=== PATIENT | female | born 1985 | race Caucasian/White ===

== ENCOUNTER 2017-08-25 18:58 | Inpatient (IN) | payer MEDICAID ==
[~2017-08-25] VITALS: Ht 160 cm; Wt 47.6 kg
--- NOTE | 2017-08-25 20:05 | NUR ---
Dr. Rueda at bedside for MSE.
[2017-08-25] MEDS ORDERED: IV NORMAL SALINE 1000 ML BAG IV ONE ×2 (20:15→22:30)
--- NOTE | 2017-08-25 20:30 | NUR ---
Pt came in, ambulated to ER, c/o headache, reports migraines over 4 days, and lost consciousness yesterday. Pt reports she doesn't eat very much. Stroke assessment performed on patient, no deficits.
[2017-08-25 20:43] LABS: BASOPHILS # (AUTO) 0.1 K/uL (0.0-8.0); BASOPHILS % (AUTO) 0.6 % (0.0-2.0); EOSINOPHILS # (AUTO) 0.1 K/uL (0.0-0.7); EOSINOPHILS % (AUTO) 0.8 % (0.0-7.0); HEMATOCRIT 35.9 % (31.2-41.9); HEMOGLOBIN 11.2 g/dL (10.9-14.3); LYMPHOCYTES # (AUTO) 1.2 K/uL (20.0-40.0); LYMPHOCYTES % (AUTO) 12.6 % (20.5-51.5); MEAN CORPUSCULAR HEMOGLOBIN 21.9 uug (24.7-32.8); MEAN CORPUSCULAR HGB CONC 31 g/dL (32.3-35.6); MEAN CORPUSCULAR VOLUME 70.1 fL (75.5-95.3); MONOCYTES # (AUTO) 0.6 K/uL (2.0-10.0); MONOCYTES % (AUTO) 6.3 % (0.0-11.0); NEUTROPHILS # (AUTO) 7.7 K/uL (1.8-8.9); NEUTROPHILS % (AUTO) 79.7 % (38.5-71.5); PLATELET COUNT (AUTO) 74 K/uL (179-408); RED BLOOD CELL COUNT(AUTO) 5.13 MIL/uL (3.63-4.92); WHITE BLOOD COUNT (AUTO) 9.7 K/uL (3.8-11.8)
[2017-08-25 20:58] LABS: BILIRUBIN,DIRECT 0.1 mg/dL (0.0-0.2); BILIRUBIN,TOTAL 0.5 mg/dL (0.2-1.0); CREATININE 0.9 mg/dL (0.6-1.3); TOTAL PROTEIN, SERUM 8.1 g/dL (6.4-8.2)
--- NOTE | 2017-08-25 21:00 | NUR ---
Pt in bed no acute signs of distress. Talking on cellphone.
--- NOTE | 2017-08-25 22:00 | NUR ---
Pt in bed, no acute signs of distress. IV infusing.
[2017-08-25 22:15] LABS: BAND % (MANUAL) 3 % (0-10); LYMPHOCYTES % (MANUAL) 10 % (20-40); MONOCYTES % (MANUAL) 5 % (2-10); NEUTROPHILS % (MANUAL) 82 % (42-75)
--- NOTE | 2017-08-25 23:38 | NUR ---
Pt in bed, reports still has headache about 6/10. No acute signs of distress.
--- NOTE | 2017-08-26 00:05 | NUR ---
1159 Patient lying BP 110/71, HR 94, O2 Sat 98%. 1201 Patient standing BP 94/52, HR 109, O2 Sat 99%. 1203 Patient standing BP 105/68, HR 110, O2 Sat 98%
--- NOTE | 2017-08-26 00:05 | NUR ---
Check patient for orthostatic hypotension. MD notified.
[2017-08-26] MEDS ORDERED: IV NORMAL SALINE 1000 ML BAG IV ONE (00:15)
[2017-08-26 00:35] LABS: *BILIRUBIN,URIN NEGATIVE (NEGATIVE); *BLOOD, URINE Trace-intact (NEGATIVE); *CLARITY,URINE CLEAR (CLEAR); *COLOR,URINE YELLOW (YELLOW); *KETONES,URINE NEGATIVE (NEGATIVE); *PROTEIN,URINE NEGATIVE (NEGATIVE); *UROBILINOGEN,URINE 0.2 E.U./dl (NORMAL); LEUKOCYTE ESTERASE ,URINE NEGATIVE (NEGATIVE); NITRITE, URINE NEGATIVE (NEGATIVE); UGLUCOSE NEGATIVE (NEGATIVE)
[2017-08-26 01:03] LABS: BACTERIA,URINE MOD /HPF (NONE SEEN); RBC,URINE 0-3 /HPF (0-3); WBC,URINE 0-3 /HPF (0-3)
[2017-08-26 01:04] LABS: SQUAMOUS EPITHELIAL CELL,UR FEW /HPF (NONE SEEN)
--- NOTE | 2017-08-26 01:25 | NUR ---
Patient immediate standing HR 139, BP 115/70
--- NOTE | 2017-08-26 01:25 | NUR ---
Rechecked patient for orthostatic hypotension.
--- NOTE | 2017-08-26 02:27 | NUR ---
Passed report to Jena RUBIO Tele.
[2017-08-26 02:45] VITALS: BP 98/63
--- NOTE | 2017-08-26 03:00 | NUR ---
RECEIVED PATIENT VIA W/C FROM ER. PATIENT IS A/O X4. C/O MIGRAINE. H/L INTACT AND PATENT NOTED TO RIGHT FA #20 GAUGE. NO RESP. DISTRESS NOTED. VSS. AFEBRILE. ORIENTED PATIENT TO ROOM AND CALL LIGHT. CALL LIGHT IN REACH. ALL NEEDS ATTENDED. WILL CONTINUE TO MONITOR AND ASSESS.
--- NOTE | 2017-08-26 03:10 | NUR ---
CALLED OUT TO BRITTANY CARROLL NP [employer] TRAINER MECHANIC FOR ADMISSION ORDERS. WAITING FOR CALL BACK.
--- NOTE | 2017-08-26 03:45 | NUR ---
PATIENT ASLEEP IN BED. WAITING FOR ADMISSION ORDERS.
[2017-08-26 04:00] VITALS: BP 96/70
--- NOTE | 2017-08-26 06:04 | NUR ---
RECEIVED CALL BACK FROM LOGAN GROVE. SHE WILL INPUT ADMISSION ORDERS.
[2017-08-26] MEDS ORDERED: Z GUARD REMEDY PASTE 57 GM TUBE TOP PRN (06:15)
[2017-08-26] MEDS ORDERED: ZOLPIDEM 5 MG TABLET PO PRN (06:15)
[2017-08-26] MEDS ORDERED: IBUPROFEN 600 MG TABLET PO PRN (06:15)
[2017-08-26] MEDS ORDERED: MAGNESIUM HYDROXIDE 30 ML LIQUID UDC PO PRN (06:15)
[2017-08-26] MEDS ORDERED: ACETAMINOPHEN 325 MG TABLET PO PRN (06:15)
[2017-08-26] MEDS ORDERED: CEPHALEXIN MONOHYDRATE 500 MG CAPSULE PO SCH (06:15)
[2017-08-26] MEDS ORDERED: IBUPROFEN 200 MG TABLET PO PRN (06:15)
[2017-08-26] MEDS ORDERED: ONDANSETRON 4 MG/2 ML VIAL IV PRN (06:15)
[2017-08-26] MEDS: IV NS 1000 ML 1,000 ML IV PRN (06:20)
--- NOTE | 2017-08-26 06:22 | NUR ---
PATIENT GIVEN KEFLEX 500MG PO ORDERED.
[2017-08-26] MEDS ORDERED: CEPHALEXIN MONOHYDRATE 500 MG CAPSULE PO ONE (06:30)
--- NOTE | 2017-08-26 06:44 | NUR ---
ON TELE SR.
[2017-08-26 11:22] VITALS: BP 110/56
[2017-08-26] MEDS: CEPHALEXIN MONOHYDRATE 500 MG CAPSULE PO SCH ×2 (13:29→21:37)
[2017-08-26 13:30] VITALS: BP_SYST 105; BP_SYST 107; BP_SYST 115; BP_DIAS 78; BP_DIAS 79
--- NOTE | 2017-08-26 13:30 | NUR ---
Orthostatic blood pressure done as ordered. Patient is alert, cooperative, in no distress, no c/o of SOB/Chest pain, dizziness. Pt c/o of slight headache. Administered PRN med as ordered.
[2017-08-26 15:40] VITALS: BP 93/68
--- NOTE | 2017-08-26 18:00 | NUR ---
Patient upset, been wantiing to leave the floor to smoke. Patient teaching provided, smoking cessation teaching provided, patient verbalized understanding but refused nicotine patch. Discussed with patient regarding hospital policy, risks/benefits of leaving floor to smoke and smoking. Patient is ambulatory, frequently goes to the bathroom and ask for her to be disconnected to the IV whenever she goes to the bathroom.
--- NOTE | 2017-08-26 18:45 | NUR ---
senior technologist alerted RN regarding patient's heart rate of 120's bpm. Patient's heart rate tends to be over 100 bpm everytime patient goes to the bathroom or stands up. Endorsed to the oncoming shift RN.
--- NOTE | 2017-08-26 20:00 | NUR ---
RECEIVED PATIENT AWAKE IN BED. A/O X4. DENIES PAIN OR DISCOMFORT. NO RESP. DISTRESS NOTED. VS WNL. ON TELE SR. IVF INFUSING WELL TO RIGHT FA #20 GAUGE. CALL LIGHT IN REACH. ALL NEEDS ATTENDED.
[2017-08-26 20:28] VITALS: BP 112/73
[2017-08-27 00:14] VITALS: BP 98/61
[2017-08-27] MEDS: IV NS 1000 ML 1,000 ML IV PRN (02:18)
[2017-08-27 04:17] VITALS: BP 101/55
[2017-08-27] MEDS: CEPHALEXIN MONOHYDRATE 500 MG CAPSULE PO SCH ×2 (05:28→13:33)
[2017-08-27 06:41] LABS: BASOPHILS % (AUTO) 0.6 % (0.0-2.0); EOSINOPHILS # (AUTO) 0.2 K/uL (0.0-0.7); EOSINOPHILS % (AUTO) 3.2 % (0.0-7.0); LYMPHOCYTES # (AUTO) 1.5 K/uL (20.0-40.0); LYMPHOCYTES % (AUTO) 26.9 % (20.5-51.5); MEAN CORPUSCULAR HGB CONC 32 g/dL (32.3-35.6); MONOCYTES # (AUTO) 0.5 K/uL (2.0-10.0); MONOCYTES % (AUTO) 8.6 % (0.0-11.0); NEUTROPHILS # (AUTO) 3.4 K/uL (1.8-8.9); NEUTROPHILS % (AUTO) 60.7 % (38.5-71.5)
--- NOTE | 2017-08-27 06:41 | NUR ---
PATIENT AWAKE IN BED. DENIES PAIN OR DISCOMFORT. NO RESP. DISTRESS NOTED. ON TELE SR. SLEPT WELL THROUGHOUT THE NIGHT. CALL LIGHT IN REACH. ALL NEEDS ATTENDED. WILL CONTINUE TO MONITOR.
[2017-08-27 06:51] LABS: CARBON DIOXIDE 24 mmol/L (21-32); CHLORIDE 107 mmol/L (98-107); CHOLESTEROL 99 mg/dL (<200); CREATININE 0.5 mg/dL (0.6-1.3); GLUCOSE 91 mg/dL (74-106); HDL CHOLESTEROL 44 mg/dL (40-60); MAGNESIUM 1.5 mg/dL (1.8-2.4); PHOSPHOROUS 3.4 mg/dL (2.5-4.9); POTASSIUM 3.6 mmol/L (3.5-5.1); TRIGLYCERIDES 47 MG/DL (30-150); UREA NITROGEN, BLOOD 9 mg/dL (7-18)
[2017-08-27 07:14] LABS: MEAN CORPUSCULAR VOLUME 69.2 fL (75.5-95.3); RED BLOOD CELL COUNT(AUTO) 4.22 MIL/uL (3.63-4.92)
[2017-08-27 07:16] LABS: HEMATOCRIT 29.2 % (31.2-41.9); HEMOGLOBIN 9.3 g/dL (10.9-14.3); WHITE BLOOD COUNT (AUTO) 5.7 K/uL (3.8-11.8)
--- NOTE | 2017-08-27 08:00 | NUR ---
awake alert cooperate well no sob or dizziness or pain resting well WITH CALL CORREA IN REACH
[2017-08-27 09:00] LABS: PLATELET COUNT (AUTO) 114 K/uL (179-408)
[2017-08-27 09:36] LABS: BAND % (MANUAL) 1 % (0-10); BASOPHILS % (MANUAL) 1 % (0-2); EOSINOPHILS % (MANUAL) 2 % (0-8); LYMPHOCYTES % (MANUAL) 26 % (20-40); MONOCYTES % (MANUAL) 8 % (2-10); NEUTROPHILS % (MANUAL) 62 % (42-75)
--- NOTE | 2017-08-27 11:00 | NUR ---
DR SOLIMAN SEE PATIENT AND LAB RESULT NEW ORDER IN CHART MG IVPB GIVEN ORDER VS TAKEN BP STILL LOW BUT STABLE NO DIZZINESS
[2017-08-27] MEDS: MAGNESIUM SULFATE/D5W 100 ML IV SCH ×2 (11:20→12:29)
[2017-08-27 11:45] VITALS: BP 100/62
--- NOTE | 2017-08-27 13:30 | NUR ---
D/C INSTRUCTION REGARDING TO F/U WITH OWN PMD CONTINUE HOME MEDICINE PREVIOUS TAKEN EDUCATION PK GIVE ,VERBALIZES UNDERSTAND STATE DOES NOT HAVE HOME MEDICINE REFUSED PHAMACY TO INSTRUCTION HL WAS DISCONTINUE CONDITION STABLE NO SOB OR DIZZINESS OR PAIN
--- NOTE | 2017-08-27 14:00 | NUR ---
D/C HOME WITH HER BELONGING CONDITION STABLE
== END 2017-08-27 14:00 | disposition home or self-care (01) | DRG 204 ==
LOC: ER 18:58 → TELE 08-26 02:17
PROVIDERS: ADMIT Nurse Practitioner Acute Care; ATTEND Internal Medicine
DX: I95.1 Orthostatic hypotension (principal); D69.6 Thrombocytopenia, unspecified; G43.909 Migraine, unspecified, not intractable, without status migrainosus; F17.210 Nicotine dependence, cigarettes, uncomplicated; R79.89 Other specified abnormal findings of blood chemistry; Z97.5 Presence of (intrauterine) contraceptive device
CPT/HCPCS: 36415; 70030-TC; 70450; 71045; 83735; 84100; 84443; 84703; 85025; 85730; 86850; 86900; 86901; 87077; 87086; 93005; 93307; A4663; J3475; J7030